=== PATIENT | female | born 1970 | race Caucasian/White ===

== ENCOUNTER → 2016-05-01 | Outpatient (CLI) | payer BC ==
--- NOTE | 2016-05-02 10:15 | MM ---
Reason for exam: screening (asymptomatic). Last mammogram was performed 1 year and 6 months ago. History: Family history of breast cancer in grandmother. Physical Findings: A clinical breast exam by your physician is recommended on an annual basis and results should be correlated with mammographic findings. MG Screening Mammo w CAD Bilateral CC and MLO view(s) were taken. Prior study comparison: October 20, 2014, bilateral MG screening mammo w CAD. July 13, 2013, [facility] DIGITAL LEFT BREAST MAMMOGRAM w/CAD. There are scattered fibroglandular densities. Finding: Vague architectural distortion in the upper outer quadrant, middle position of the left breast, 7cm from the nipple. New finding since October 20, 2014 and July 13, 2013. ASSESSMENT: Incomplete: need additional imaging evaluation, BI-RAD 0 RECOMMENDATION: Special view mammogram of the left breast. If lesion persists on supplemental views, image directed ultrasound is recommended. [facility] will attempt to contact patient to return for supplemental views and ultrasound if indicated.
== END | disposition home or self-care (01) ==
LOC: RADMAMWWP 12:53
PROVIDERS: ATTEND Obstetrics & Gynecology
DX: Z12.31 Encounter for screening mammogram for malignant neoplasm of breast (principal)

== ENCOUNTER → 2016-05-03 | Outpatient (CLI) | payer BC ==
--- NOTE | 2016-05-03 11:20 | MM ---
Reason for exam: additional evaluation requested from abnormal screening. Last mammogram was performed less than 1 month ago. History: Family history of breast cancer in grandmother. Physical Findings: Nurse did not find any significant physical abnormalities on exam. MG Work Up Mamm w CAD LT ML, spot compression CC, and spot compression MLO view(s) were taken of the left breast. Prior study comparison: May 01, 2016, bilateral MG screening mammo w CAD. October 20, 2014, bilateral MG screening mammo w CAD. July 13, 2013, [facility] DIGITAL LEFT BREAST MAMMOGRAM w/CAD. The breast tissue is heterogeneously dense. This may lower the sensitivity of mammography. The questioned upper outer quadrant does not persist compatible with summation shadow. ASSESSMENT: Negative, BI-RAD 1 RECOMMENDATION: Return to routine screening mammogram schedule for both breasts.
== END | disposition home or self-care (01) ==
LOC: RADMAMWWP 10:16
PROVIDERS: ATTEND Obstetrics & Gynecology
DX: R92.8 Other abnormal and inconclusive findings on diagnostic imaging of breast (principal)

== ENCOUNTER → 2017-06-24 | Outpatient (CLI) | payer BC ==
[2017-06-25 05:12] LABS: Herpes simplex I and/or II IgM 0.9 INDEX (<=0.90); Herpes simplex IgG I Ab 0.13 (< or = 0.90)
== END | disposition home or self-care (01) ==
LOC: LABWHC1 10:22
PROVIDERS: ATTEND Obstetrics & Gynecology
DX: N76.2 Acute vulvitis (principal)
CPT/HCPCS: 36415; 86694; 86695; 86696

== ENCOUNTER → 2017-11-21 | Outpatient (CLI) | payer BC ==
--- NOTE | 2017-11-25 12:16 | MM ---
Reason for exam: screening (asymptomatic). Last mammogram was performed 1 year and 7 months ago. History: Family history of breast cancer in grandmother. Physical Findings: A clinical breast exam by your physician is recommended on an annual basis and results should be correlated with mammographic findings. MG Screening Mammo w CAD Bilateral CC and MLO view(s) were taken. Prior study comparison: May 03, 2016, left breast MG work up mamm w CAD LT. May 01, 2016, bilateral MG screening mammo w CAD. The breast tissue is heterogeneously dense. This may lower the sensitivity of mammography. No significant changes when compared with prior studies. ASSESSMENT: Benign, BI-RAD 2 RECOMMENDATION: Routine screening mammogram of both breasts in 1 year.
== END | disposition home or self-care (01) ==
LOC: RADMAMWWP 08:32
PROVIDERS: ATTEND Obstetrics & Gynecology
DX: Z12.31 Encounter for screening mammogram for malignant neoplasm of breast (principal)
CPT/HCPCS: 77067

== ENCOUNTER → 2018-03-10 | Outpatient (CLI) | payer BC ==
[2018-03-10 17:46] LABS: HCT 36.3 % (34.0-46.0); MCH 28.6 pg (25.0-35.0); MCHC 33.1 g/dL (31.0-37.0); MCV 86.5 fL (80.0-100.0); Mean Platelet Volume 7.7; Platelet Count 318 k/uL (150-450)
[2018-03-10 17:52] LABS: Anion Gap 8 mmol/L; Blood Urea Nitrogen 19 mg/dL (7-17); Carbon Dioxide 28 mmol/L (22-30); Chloride 104 mmol/L (98-107); Potassium 4.8 mmol/L (3.5-5.1); Sodium 140 mmol/L (137-145)
== END | disposition home or self-care (01) ==
LOC: LABPAT 17:10
PROVIDERS: ATTEND Internal Medicine Interventional Cardiology
DX: Z01.812 Encounter for preprocedural laboratory examination (principal); E78.5 Hyperlipidemia, unspecified; I10 Essential (primary) hypertension; R06.02 Shortness of breath; R07.89 Other chest pain
CPT/HCPCS: 36415; 80051; 82565; 84520; 85027

== ENCOUNTER → 2018-04-15 | Outpatient (CLI) | payer BC ==
--- NOTE | 2018-04-15 17:33 | US ---
EXAMINATION TYPE: US venous doppler duplex LE LT DATE OF EXAM: 04/15/2018 5:11 PM COMPARISON: NONE CLINICAL HISTORY: M79.662 Pain Left Calf. SIDE PERFORMED: Left TECHNIQUE: The lower extremity deep venous system is examined utilizing real time linear array sonog devante with graded compression, doppler sonography and color-flow sonography. VESSELS IMAGED: Common Femoral Vein Deep Femoral Vein Greater Saphenous Vein * Femoral Vein Popliteal Vein Small Saphenous Vein * Proximal Calf Veins (* superficial vessels) Left Leg: Negative for DVT. Edema channels are noted at swelling left ankle. IMPRESSION: There is subcutaneous edema demonstrated. No evidence of deep venous thrombosis.
== END | disposition home or self-care (01) ==
LOC: RADUSWWP 16:46
PROVIDERS: ATTEND Nurse Practitioner Family
DX: R60.0 Localized edema (principal); M79.662 Pain in left lower leg

== ENCOUNTER → 2019-11-19 | Outpatient (CLI) | payer BC ==
--- NOTE | 2019-11-22 09:46 | MM ---
Reason for exam: screening (asymptomatic). Last mammogram was performed 2 years ago. History: Family history of breast cancer in grandmother. Physical Findings: A clinical breast exam by your physician is recommended on an annual basis and results should be correlated with mammographic findings. MG Screening Mammo w CAD Bilateral CC and MLO view(s) were taken. Prior study comparison: November 21, 2017, bilateral MG screening mammo w CAD. May 03, 2016, left breast MG work up mamm w CAD LT. The breast tissue is heterogeneously dense. This may lower the sensitivity of mammography. There is no discrete abnormality. No significant changes when compared with prior studies. ASSESSMENT: Negative, BI-RAD 1 RECOMMENDATION: Routine screening mammogram of both breasts in 1 year.
== END | disposition home or self-care (01) ==
LOC: RADMAMWWP 10:10
DX: Z12.31 Encounter for screening mammogram for malignant neoplasm of breast (principal)
CPT/HCPCS: 77067

== ENCOUNTER 2020-05-24 10:35 | Emergency (ER) | payer BC ==
[2020-05-24 10:42] VITALS: TEMP 98
[2020-05-24] MEDS ORDERED: SODIUM CHLORIDE 0.9% 1,000 ML IV STA (10:46)
[2020-05-24] MEDS ORDERED: KETOROLAC 15 MG/ML 1 ML VIAL IVP STA (10:46)
[2020-05-24] MEDS ORDERED: PANTOPRAZOLE 40 MG/10 ML VIAL IVP STA (10:46)
[2020-05-24] MEDS ORDERED: ONDANSETRON 4 MG/2 ML VIAL IVP STA (10:46)
--- NOTE | 2020-05-24 10:48 | ED ---
General Adult HPI - General Chief complaint: Back Pain/Injury Stated complaint: Abd pain Time Seen by Provider: 05/24/20 10:43 Source: patient Mode of arrival: ambulatory Limitations: no limitations - History of Present Illness Initial comments: 49-year-old female history kidney stones presents emergency Department with chief complaint of flank pain. Patient reports the pain started last night while she was resting. Patient reports the pain started in her left lower quadrant region of the abdomen but then migrated to the left flank region. Patient states now it feels like the pain is radiating from her left flank to the left groin. Patient reports the pain feels dull and has a burning sensation. States her last kidney stone was approximately 27 years ago and feels somewhat like it. She denies hematuria, medication or melena. Denies dysuria, increased urgency or frequency. Does report some nausea but no vomiting or diarrhea. Denies chest pain shortness of breath, one-sided weakness or paresthesias. - Related Data Home Medications Medication Instructions Recorded Confirmed Atenolol [Tenormin] 50 mg PO DAILY 05/24/20 05/24/20 Atorvastatin [Lipitor] 20 mg PO DAILY 05/24/20 05/24/20 Cetirizine HCl 10 mg PO DAILY 05/24/20 05/24/20 Cholecalciferol (Vitamin D3) 125 mcg PO DAILY 05/24/20 05/24/20 [Vitamin D3 (5000 Iu)] Furosemide [Lasix] 20 mg PO DAILY 05/24/20 05/24/20 Omeprazole 40 mg PO DAILY 05/24/20 05/24/20 amLODIPine [Norvasc] 5 mg PO DAILY 05/24/20 05/24/20 metFORMIN HCL [Glucophage] 500 mg PO DAILY 05/24/20 05/24/20 Allergies Allergy/AdvReac Type Severity Reaction Status Date / Time perflutren [From Definity] AdvReac Back Verified 05/24/20 11:45 Pain/BP Increase Review of Systems ROS Statement: Those systems with pertinent positive or pertinent negative responses have been documented in the HPI. ROS Other: All systems not noted in ROS Statement are negative. Past Medical History Past Medical History: Asthma, Diabetes Mellitus, Hyperlipidemia, Hypertension Additional Past Medical History / Comment(s): Vitamin D deficiency, gastritis History of Any Multi-Drug Resistant Organisms: None Reported Past Surgical History: Cholecystectomy, Orthopedic Surgery Additional Past Surgical History / Comment(s): R elbow Past Anesthesia/Blood Transfusion Reactions: No Reported Reaction Past Psychological History: No Psychological Hx Reported Smoking Status: Never smoker Past Alcohol Use History: None Reported Past Drug Use History: None Reported General Exam Limitations: no limitations General appearance: alert, in no apparent distress, obese Head exam: Present: atraumatic, normocephalic, normal inspection Eye exam: Present: normal appearance, PERRL, EOMI Pupils: Present: normal accommodation ENT exam: Present: normal exam, normal oropharynx, mucous membranes moist Neck exam: Present: normal inspection, full ROM. Absent: tenderness Respiratory exam: Present: normal lung sounds bilaterally. Absent: respiratory distress Cardiovascular Exam: Present: regular rate, normal rhythm, normal heart sounds GI/Abdominal exam: Present: soft, tenderness (left lower quadrant and left groin tenderness). Absent: distended, guarding, rebound, rigid Extremities exam: Present: normal inspection, full ROM, normal capillary refill, other (+2dorsalis pedis and posterior tibialis bilaterally.). Absent: tenderness, pedal edema, joint swelling Back exam: Present: normal inspection, full ROM, tenderness, CVA tenderness (L). Absent: CVA tenderness (R) Neurological exam: Present: alert, oriented X3, CN II-XII intact, normal gait Psychiatric exam: Present: normal affect, normal mood Skin exam: Present: warm, dry, intact, normal color Course Vital Signs 05/24/20 05/24/20 10:40 12:05 Temperature 98 F Pulse Rate 81 90 Respiratory 16 18 Rate Blood Pressure 199/100 166/82 O2 Sat by Pulse 100 100 Oximetry EKG Findings - EKG Comments: EKG Findings:: sinus rhythm, no ST or T-wave changes. Ventricular rate 95, TX 142, QRS 94, QTC 442. Medical Decision Making - Medical Decision Making 49-year-old female presents to the emergency department with a chief complaint of abdominal pain. On physical examination, left CVA tenderness along with left flank tenderness. She has hypertensive but did not take her morning medication. Also suspect hypotension secondary to pain. Patient was given IV fluids, Toradol, Protonix, Zofran. On reevaluation, patient reports significant improvement in pain. States the pain is at a 1. CBC unremarkable. CMP reveals elevated glucose at 233. Patient is diabetic. UA shows +3 glucose, red blood cells and small amounts of blood. noncontrastCT abdomen and pelvis reveals a calcification in the bladder which represents a likely passed kidney stone. I do suspect this to be the case considering the patient h has almost nonexistent pain at this time. Advised the patient to follow up with PCP. Return parameters discussed the patient was understanding and agreeable. Case discussed with Dr. Benson. - Lab Data Result diagrams: 05/24/20 10:53 05/24/20 10:53 Lab Results 05/24/20 05/24/20 05/24/20 Range/Units 10:53 10:53 10:53 WBC 10.3 (3.8-10.6) k/uL RBC 4.81 (3.80-5.40) m/uL Hgb 12.7 (11.4-16.0) gm/dL Hct 39.6 (34.0-46.0) % MCV 82.3 (80.0-100.0) fL MCH 26.4 (25.0-35.0) pg MCHC 32.1 (31.0-37.0) g/dL RDW 15.3 (11.5-15.5) % Plt Count 255 (150-450) k/uL MPV 8.3 Neutrophils % 81 % Lymphocytes % 14 % Monocytes % 3 % Eosinophils % 1 % Basophils % 1 % Neutrophils # 8.3 H (1.3-7.7) k/uL Lymphocytes # 1.4 (1.0-4.8) k/uL Monocytes # 0.3 (0-1.0) k/uL Eosinophils # 0.1 (0-0.7) k/uL Basophils # 0.1 (0-0.2) k/uL Sodium 135 L (137-145) mmol/L Potassium 4.4 (3.5-5.1) mmol/L Chloride 101 (98-107) mmol/L Carbon Dioxide 24 (22-30) mmol/L Anion Gap 10 mmol/L BUN 15 (7-17) mg/dL Creatinine 0.67 (0.52-1.04) mg/dL Est GFR (CKD-EPI)AfAm >90 (>60 ml/min/1.73 sqM) Est GFR (CKD-EPI)NonAf >90 (>60 ml/min/1.73 sqM) Glucose 213 H (74-99) mg/dL Calcium 9.6 (8.4-10.2) mg/dL Total Bilirubin 0.7 (0.2-1.3) mg/dL AST 27 (14-36) U/L ALT 26 (4-34) U/L Alkaline Phosphatase 90 (38-126) U/L Total Protein 8.1 (6.3-8.2) g/dL Albumin 4.6 (3.5-5.0) g/dL Lipase 62 (23-300) U/L Urine Color Light Yellow Urine Appearance Clear (Clear) Urine pH 7.0 (5.0-8.0) Ur Specific [place] 1.017 (1.001-1.035) Urine Protein Trace H (Negative) Urine Glucose (UA) 3+ H (Negative) Urine Ketones Negative (Negative) Urine Blood Small H (Negative) Urine Nitrite Negative (Negative) Urine Bilirubin Negative (Negative) Urine Urobilinogen <2.0 (<2.0) mg/dL Ur Leukocyte Esterase Negative (Negative) Urine RBC 26 H (0-5) /hpf Urine WBC 1 (0-5) /hpf Ur Squamous Epith Cells <1 (0-4) /hpf Hyaline Casts 1 (0-2) /lpf Urine Mucus Rare H (None) /hpf Disposition Clinical Impression: Kidney stone, Left flank pain Disposition: HOME SELF-CARE Condition: Stable Instructions (If sedation given, give patient instructions): Kidney Stones (ED) Additional Instructions: Follow-up with the primary care physician. Return to emergency department if symptoms worsen. Is patient prescribed a controlled substance at d/c from ED?: No Referrals: Daria Madrid MD [Primary Care Provider] - 1-2 days Time of Disposition: 12:25
[2020-05-24 11:33] LABS: Basophils # (A) 0.1 k/uL (0-0.2); Basophils % (A) 1 %; Eosinophils # (A) 0.1 k/uL (0-0.7); Eosinophils % (A) 1 %; HCT 39.6 % (34.0-46.0); HGB 12.7 gm/dL (11.4-16.0); Lymphocytes # (A) 1.4 k/uL (1.0-4.8); Lymphocytes % (A) 14 %; MCH 26.4 pg (25.0-35.0); MCHC 32.1 g/dL (31.0-37.0); MCV 82.3 fL (80.0-100.0); Mean Platelet Volume 8.3; Monocytes # (A) 0.3 k/uL (0-1.0); Monocytes % (A) 3 %; Neutrophils # (A) 8.3 k/uL (1.3-7.7); Neutrophils % (A) 81 %; Platelet Count 255 k/uL (150-450); RBC 4.81 m/uL (3.80-5.40); RDW 15.3 % (11.5-15.5); WBC 10.3 k/uL (3.8-10.6)
[2020-05-24 11:39] LABS: Appearance,Urine Clear (Clear); Bilirubin,Urine Negative (Negative); Blood,Urine Small (Negative); Color,Urine Light Yellow; Glucose,Urine (UA) 3+ (Negative); Hyaline Casts,Urine 1 /lpf (0-2); Ketones,Urine Negative (Negative); Leukocyte Esterase,Urine Negative (Negative); Mucus,Urine Rare /hpf; Nitrite,Urine Negative (Negative); Protein,Urine Trace (Negative); RBC,Urine 26 /hpf (0-5); Specific Gravity,Urine 1.017 (1.001-1.035); Squamous Epithelial Cell,Urine <1 /hpf (0-4); Urobilinogen,Urine <2.0 mg/dL (<2.0); WBC,Urine 1 /hpf (0-5)
[2020-05-24 11:53] LABS: ALT 26 U/L (4-34); AST 27 U/L (14-36); African American GFR (CKD) >90 (>60 ml/min/1.73 sqM); Albumin 4.6 g/dL (3.5-5.0); Alkaline Phosphatase 90 U/L (38-126); Anion Gap 10 mmol/L; Blood Urea Nitrogen 15 mg/dL (7-17); Calcium 9.6 mg/dL (8.4-10.2); Carbon Dioxide 24 mmol/L (22-30); Chloride 101 mmol/L (98-107); Glucose 213 mg/dL (74-99); Lipase 62 U/L (23-300); Non-African American GFR(CKD) >90 (>60 ml/min/1.73 sqM); Potassium 4.4 mmol/L (3.5-5.1); Sodium 135 mmol/L (137-145); Total Bilirubin 0.7 mg/dL (0.2-1.3); Total Protein 8.1 g/dL (6.3-8.2)
--- NOTE | 2020-05-24 12:03 | CT ---
EXAMINATION TYPE: CT abdomen pelvis wo con DATE OF EXAM: 05/24/2020 COMPARISON: 09/25/2012 INDICATION: Left sided pain with increased frequency of urination. DLP: 1094.4 mGycm, Automated exposure control for dose reduction was used. CONTRAST: 0 mL of Isovue 300. Study performed without Oral Contrast TECHNIQUE: Axial images were obtained from above the diaphragm to the pubic rami in the axial plane a t 5 mm thick sections. Reconstructed images are reviewed on the computer in the coronal plane. FINDINGS: Limited CT sections are obtained the lung bases. The lung bases are clear. CT ABDOMEN: Liver: Normal Spleen: Normal Pancreas: Normal Adrenal glands: The adrenal glands are normal. Gallbladder: Surgically absent Kidneys: No masses are evident. No hydronephrosis is present. No cysts are present. No renal stone s are evident. Some mild left hydroureter may be present with adjacent stranding. No obstructing uret eral stone is evident. Consider recent passage of a ureteral stone. Aorta: Vascular calcification is within the aorta. Inferior vena cava: Normal. CT PELVIS: Loops of bowel within the abdomen and pelvis are normal. The study is without oral contrast limit ing bowel evaluation. Appendix: Normal as visualized. Urinary bladder: Punctate 0.2 cm calcification may be within the dependent portion of the urinary reid dder. Series 201 image 147. Consider recent passage of renal stone. Genitourinary structures: Uterus is normal. Adnexal regions are clear. Osseous structures: No suspicious lytic or sclerotic lesions. IMPRESSIONS: 1. Punctate calcification within the dependent urinary bladder. There may be recent passage of a lef t ureteral stone. Correlate with symptoms.
[2020-05-24 12:07] VITALS: RESP 18
[2020-05-24 13:31] VITALS: BP 147/85; PULSE 94
== END 2020-05-24 13:30 | disposition home or self-care (01) ==
LOC: EC 10:35
DX: N20.0 Calculus of kidney (principal); E78.5 Hyperlipidemia, unspecified; E11.65 Type 2 diabetes mellitus with hyperglycemia; I10 Essential (primary) hypertension; Z79.84 Long term (current) use of oral hypoglycemic drugs; Z79.899 Other long term (current) drug therapy; Z88.8 Allergy status to other drugs, medicaments and biological substances; Z90.49 Acquired absence of other specified parts of digestive tract
CPT/HCPCS: 36415; 93005; 80053; 83690; 85025; 81001; 74176; 99284; 96374; 96375 ×2; 96361; J2405; J1885; C9113

== ENCOUNTER → 2021-03-15 | Outpatient (CLI) | payer BC ==
--- NOTE | 2021-03-19 10:33 | MM ---
Reason for exam: screening (asymptomatic). Last mammogram was performed 1 year and 4 months ago. History: Patient history of other cancer. Family history of breast cancer in sister at age 25 and breast cancer in grandmother at age 52. Physical Findings: A clinical breast exam by your physician is recommended on an annual basis and results should be correlated with mammographic findings. MG Screening Mammo w CAD Bilateral CC and MLO view(s) were taken. Prior study comparison: November 19, 2019, bilateral MG screening mammo w CAD. November 21, 2017, bilateral MG screening mammo w CAD. The breast tissue is heterogeneously dense. This may lower the sensitivity of mammography. Focal asymmetry. No significant changes when compared with prior studies. ASSESSMENT: Benign, BI-RAD 2 RECOMMENDATION: Routine screening mammogram of both breasts in 1 year.
== END | disposition home or self-care (01) ==
LOC: RADMAMWWP 15:14
PROVIDERS: ATTEND Family Medicine
DX: Z12.31 Encounter for screening mammogram for malignant neoplasm of breast (principal); Z80.3 Family history of malignant neoplasm of breast
CPT/HCPCS: 77067

== ENCOUNTER → 2021-03-30 | Outpatient (CLI) | payer BC ==
--- NOTE | 2021-03-30 14:35 | MR ---
EXAMINATION TYPE: MR iac wo/w con DATE OF EXAM: 03/30/2021 COMPARISON: NONE HISTORY: 50-year-old female Otalgia left ear, chronic sinus and ear infections TECHNIQUE: Multiplanar, multisequence images of the brain and brainstem were acquired before and aft er administration of 10 mL IV Gadavist. Diffusion weighted imaging was performed. Additional coned- down sequences through the internal auditory canals and posterior cranial fossa before and after IV c ontrast administration. FINDINGS: Diffusion weighted images demonstrate no evidence of an acute ischemic lesion in the brain. T2/FLAIR weighted sequences show minimal bright signal foci in subcortical regions of both hemisphere s, numbering less than 5 on each side, likely minimal early changes of chronic small vessel ischemic disease. Midline structures demonstrate partially into the sella. Otherwise, normal morphology. The craniocer vical junction is normal. Brain volume and ventricles are of normal caliber. There is no evidence of an acute intracranial hemorrhage, infarct, mass, mass-effect or an extra-axia l fluid collection. There is no cerebellopontine angle mass. Some CSF flow artifacts are noted. The internal auditory canals are symmetric. Brainstem and skull base abnormalities are not seen. Post contrast images demonstrate no evidence of pathologic enhancement in the posterior cranial kailash a or the internal auditory canals. Dural venous sinuses are patent. There is no abnormal enhancement of the labyrinths. Trace mucosal thickening ethmoid air cells. Globes are intact. IMPRESSION: 1 A few nonspecific scattered foci of T2 bright white matter change likely minimal early changes of c hronic small vessel ischemic disease. 2. No acute intracranial abnormality seen. No enhancing intracranial lesions. 3. No specific abnormality on acoustic MRI. 4. Mild chronic ethmoid sinus disease.
== END | disposition home or self-care (01) ==
LOC: RADMRIMAIN 13:20
PROVIDERS: ATTEND Nurse Practitioner Adult Health
DX: H92.02 Otalgia, left ear (principal); J32.2 Chronic ethmoidal sinusitis
CPT/HCPCS: 70553; A9585

== ENCOUNTER → 2021-04-03 | Outpatient (CLI) | payer BC ==
--- NOTE | 2021-04-03 18:19 | CT ---
EXAMINATION TYPE: CT sinus wo con DATE OF EXAM: 04/03/2021 COMPARISON: None HISTORY: left ear pain CT DLP: 442.[address] of the paranasal sinuses was performed in the axial and coronal planes. Bone and soft tissue settings are submitted. The paranasal sinuses demonstrate normal aeration and development. The paranasal sinuses are free of mucosal thickening or air fluid level. The osteal meatal units are patent bilaterally. Mild nasal septal deviation from right to left. No bony destructive changes are seen within the field of view. IMPRESSION: Mild nasal septal deviation from right to left.
--- NOTE | 2021-04-03 18:31 | XR ---
EXAMINATION TYPE: XR cervical spine limited DATE OF EXAM: 04/03/2021 CLINICAL HISTORY: pain TECHNIQUE: 3 views of the cervical spine are submitted. COMPARISON: None. FINDINGS: There is satisfactory in alignment without evidence of acute fracture or dislocation. The pre-vertebral soft tissue appears within normal limits. There are mild degenerative disc space at C4 -5 C5-6. The C1-C2 articulation is unremarkable on the open mouth view. IMPRESSION: No acute fracture or dislocation is seen in the cervical spine.
== END | disposition home or self-care (01) ==
LOC: RADCTMAIN 16:52
PROVIDERS: ATTEND Otolaryngology
DX: J34.2 Deviated nasal septum (principal); M54.2 Cervicalgia
CPT/HCPCS: 70486; 72040

== ENCOUNTER → 2022-04-22 | Outpatient (CLI) | payer BC ==
--- NOTE | 2022-04-23 08:38 | MM ---
Reason for Exam: Screening (asymptomatic). Last mammogram was performed 1 year(s) and 1 month(s) ago. Patient History: Menarche at age 15. First Full-Term at age 25. Other cancer. Maternal grandmother had breast cancer, age 52. Sister had breast cancer, age 25. Last menstrual period: 04/16/2022 Risk Values: Sabina 5 year model risk: 1.8%. NCI Lifetime model risk: 16.7%. Prior Study Comparison: 11/21/2017 Bilateral Screening Mammogram, [facility]. 11/19/2019 Bilateral Screening Mammogram, [facility]. 03/15/2021 Bilateral Screening Mammogram, [facility]. Tissue Density: The breast tissue is heterogeneously dense. This may lower the sensitivity of mammography. Findings: Analyzed By CAD. There is no suspicious group of microcalcifications or new suspicious mass in either breast. Overall Assessment: Negative, BI-RAD 1 Management: Screening Mammogram of both breasts in 1 year. A clinical breast exam by your physician is recommended on an annual basis and results should be correlated with mammographic findings. Electronically signed and approved by: Jayesh Dunlap D.O.
== END | disposition home or self-care (01) ==
LOC: RADMAMWWP 07:08
PROVIDERS: ATTEND Obstetrics & Gynecology
DX: Z12.31 Encounter for screening mammogram for malignant neoplasm of breast (principal); Z80.3 Family history of malignant neoplasm of breast
CPT/HCPCS: 77067

== ENCOUNTER → 2023-04-30 | Outpatient (CLI) | payer BC ==
--- NOTE | 2023-05-01 08:56 | MM ---
Reason for Exam: Screening (asymptomatic). Last screening mammogram was performed 12 month(s) ago. Patient History: Menarche at age 15. First Full-Term at age 25. Patient has history of breast feeding. Maternal grandmother had breast cancer, age 52. Sister had breast cancer, age 25. Last menstrual period: 04/03/2023 Risk Values: Sabina 5 year model risk: 1.8%. NCI Lifetime model risk: 16.4%. Prior Study Comparison: 11/19/2019 Bilateral Screening Mammogram, [facility]. 03/15/2021 Bilateral Screening Mammogram, [facility]. 04/22/2022 Bilateral MG screening mammo w CAD, [facility]. Tissue Density: There are scattered fibroglandular densities. Findings: Analyzed By CAD. There is no suspicious group of microcalcifications or new suspicious mass. Overall Assessment: Negative, BI-RAD 1 Management: Screening Mammogram of both breasts in [address] [facility] will attempt to contact patient to return for supplemental views and ultrasound if indicated. Patient should continue monthly self-breast exams. A clinical breast exam by your physician is recommended on an annual basis. This exam should not preclude additional follow-up of suspicious palpable abnormalities. Note on Sabina scores and lifetime risk: 1. A Sabina score greater than 3% is considered moderate risk. If this is the case, consider specialist referral to assess eligibility for a risk reducing agent. 2. If overall lifetime risk for the development of breast cancer is 20% or higher, the patient may qualify for future screening with alternating mammogram and breast MRI. Electronically signed and approved by: Alon Hameed DO
== END | disposition home or self-care (01) ==
LOC: RADMAMWWP 16:18
PROVIDERS: ATTEND Family Medicine
DX: Z00.00 Encounter for general adult medical examination without abnormal findings (principal); Z12.31 Encounter for screening mammogram for malignant neoplasm of breast; Z80.3 Family history of malignant neoplasm of breast
CPT/HCPCS: 77067

== ENCOUNTER → 2023-07-08 | Outpatient (CLI) | payer BC ==
--- NOTE | 2023-07-11 08:54 | CT ---
EXAMINATION TYPE: CT sinus wo con CT DLP: 477.4 mGycm, Automated exposure control for dose reduction was used. DATE OF EXAM: 07/08/2023 COMPARISON: Sinus CT 04/03/2021. CLINICAL INDICATION:Female, 52 years old with history of J32.0 CHRONIC SINUSITIS; , Chronic sinus nicholas n and drainage TECHNIQUE: Multiple thin axial images were obtained through the paranasal sinuses without the use of IV contrast. Additional coronal and sagittal reformatted images were submitted for evaluation. Contrast used: none Oral contrast used: none FINDINGS: Frontal sinuses: Normally developed and aerated. Frontal Recess: Clear Maxillary Sinuses: Normally developed and aerated. Lobular mucosal thickening in involving the left m ore than right maxillary. Maxillary Infundibula([facility]): Left ostiomeatal complex appears patent with mild narrowing by soft tissu e thickening. Right ostiomeatal complex appears patent, with mild narrowing by soft tissue thickening and small Devendra air cell. Ethmoid sinuses: Normally developed and aerated. Mild scattered mucosal thickening in a few ethmoid a ir cells. Ethmoidal notch: Protected and abutting the lateral lamina. Sphenoid sinuses: Normally developed and aerated. There is presellar sphenoid sinus pneumatization wi thout evidence of dehiscence. No dehiscence of carotid canal. No evidence of optic nerve dehiscence within the sphenoid sinus. Sphenoethmoidal recesses: Clear. Nasal septum: At the midportion of the nasal septum there is deviation towards the left with small os seous spur extending between the middle and inferior turbinates.. Nasal Turbinates: Within normal limits. Mastoid air cells & middle ears: The air cells are clear. The middle ears are grossly unremarkable. Modified Soft tissues & Brain: Partially seen without gross abnormality. Globes are intact. No eviden ce of intraorbital pathology. Other: Cribriform plate demonstrates symmetric Keros classification type 2 cribriform plate. No evidence of bony dehiscence of skull base. Lamina papyracea is intact without evidence of remote orbital fracture or orbital prolapse into the e thmoid sinus. Compared to the prior study, there has been no significant interval change. IMPRESSION: 1. Scattered mild paranasal sinus mucosal thickening, with some lobular mucosal thickening in the lef t more than right maxillary sinus. 2. Ostiomeatal complexes are patent, with mild soft tissue narrowing bilaterally, and small Devendra ai r cell on the right. 3. Nasal septal deviation to the left with small osseous spur.
== END | disposition home or self-care (01) ==
LOC: RADCTMAIN 17:37
PROVIDERS: ATTEND Otolaryngology
DX: J32.0 Chronic maxillary sinusitis (principal); J34.2 Deviated nasal septum; J34.89 Other specified disorders of nose and nasal sinuses
CPT/HCPCS: 70486

== ENCOUNTER → 2023-10-13 | Outpatient (CLI) | payer BC ==
[2023-10-13 10:42] LABS: HCT 36.5 % (34.0-46.0); HGB 11.4 gm/dL (11.4-16.0); Hypochromasia Slight; MCH 27.5 pg (25.0-35.0); MCHC 31.1 g/dL (31.0-37.0); MCV 88.4 fL (80.0-100.0); Mean Platelet Volume 8.4; Platelet Count 285 k/uL (150-450); RBC 4.13 m/uL (3.80-5.40); RDW 14.8 % (11.5-15.5); WBC 9.8 k/uL (3.8-10.6)
[2023-10-13 15:28] LABS: NT-Pro-B-Type Natriuretic Pept 70 pg/mL (0-125)
[2023-10-13 16:00] LABS: ALT 19 U/L (8-44); AST 19 U/L (13-35); Albumin 4.1 g/dL (3.8-4.9); Albumin/Globulin Ratio 1.46 Ratio (1.60-3.17); Alkaline Phosphatase 91 U/L (41-126); BUN/Creat Ratio 16.83 Ratio (12.00-20.00); Blood Urea Nitrogen 10.1 mg/dL (9.0-27.0); Calcium 9.3 mg/dL (8.7-10.3); Chloride 102 mmol/L (96-109); Chol/HDL Ratio 3.41 Ratio; Globulin 2.8 g/dL (1.6-3.3); Glucose 165 mg/dL (70-110); LDL Cholesterol,Calculated 98.4 mg/dL (0.0-131.0); Potassium 4.7 mmol/L (3.5-5.5); Sodium 137 mmol/L (135-145); Total Bilirubin 0.4 mg/dL (0.3-1.2); Total Protein 6.9 g/dL (6.2-8.2)
== END | disposition home or self-care (01) ==
LOC: LABWHC1 09:58
PROVIDERS: ATTEND Student in an Organized Health Care Education/Training Program
DX: Z00.00 Encounter for general adult medical examination without abnormal findings (principal); I12.9 Hypertensive chronic kidney disease with stage 1 through stage 4 chronic kidney disease, or unspecified chronic kidney disease; E11.22 Type 2 diabetes mellitus with diabetic chronic kidney disease; E78.5 Hyperlipidemia, unspecified; E03.9 Hypothyroidism, unspecified; N18.9 Chronic kidney disease, unspecified; D63.1 Anemia in chronic kidney disease
CPT/HCPCS: 36415; 80053; 80061; 83036; 83880; 84443; 85027

== ENCOUNTER → 2024-06-11 | Outpatient (CLI) | payer BC ==
--- NOTE | 2024-06-11 16:18 | MM ---
Reason for Exam: Screening (asymptomatic). Last mammogram was performed 1 year(s) and 2 month(s) ago. Patient History: Menarche at age 15. First Full-Term at age 25. Perimenopausal. Patient has history of breast feeding. Maternal grandmother had breast cancer, age 52. Sister had breast cancer, age 52. Risk Values: Sabina 5 year model risk: 1.9%. NCI Lifetime model risk: 16.2%. Prior Study Comparison: 03/15/2021 Bilateral Screening Mammogram, [facility]. 04/22/2022 Bilateral MG screening mammo w CAD, [facility]. 04/30/2023 Bilateral MG screening mammo w CAD, [facility]. Tissue Density: The breasts are heterogeneously dense, which may obscure small masses. Findings: Analyzed By CAD. Unchanged global asymmetry upper outer quadrant left breast. Other areas of bilateral asymmetric densities are also unchanged. There is no suspicious group of microcalcifications or new suspicious mass in either breast. Overall Assessment: Benign, BI-RAD 2 Management: Screening Mammogram of both breasts in 1 year. Patient should continue monthly self-breast exams. A clinical breast exam by your physician is recommended on an annual basis. This exam should not preclude additional follow-up of suspicious palpable abnormalities. Note on Sabina scores and lifetime risk: 1. A Sabina score greater than 3% is considered moderate risk. If this is the case, consider specialist referral to assess eligibility for a risk reducing agent. 2. If overall lifetime risk for the development of breast cancer is 20% or higher, the patient may qualify for future screening with alternating mammogram and breast MRI. [facility], , 06/11/2024 4:15 PM. Electronically signed and approved by: Kushal Gilliland M.D. Radiologist
== END | disposition home or self-care (01) ==
LOC: RADMAMWWP 13:58
PROVIDERS: ATTEND Family Medicine
DX: Z12.31 Encounter for screening mammogram for malignant neoplasm of breast (principal); R92.333 Mammographic heterogeneous density, bilateral breasts; Z80.3 Family history of malignant neoplasm of breast
CPT/HCPCS: 77067